=== PATIENT | female | born 1935 | race Caucasian/White ===

== ENCOUNTER → 2016-04-24 | Outpatient (CLI) | payer OTHER, BC ==
[~2016-04-24] MED LIST: AMLODIPINE BESY10 MG PO; AMLODIPINE BESYL5 MG PO; ASPIRIN325 MG PO; CALCIUM 500 MG1 EACH PO; DAILY VALUE1 EACH PO; DILTIAZEM 24HR240 MG PO; DITROPAN XL5 MG PO; DYAZIDE, MA1 CAPSULE PO; GLUCOMETER MC; LO-DOSE ASPIRIN81 M2 PO; MELATONIN3 MG PO; METFORMIN HCL500 MG PO; NOVOLOG PE100 UNITS/ SC; POTASSIUM CHLO10 MEQ PO; REVLIMID5 MG PO; TEST STRIPS MC; VITAMIN A; VITAMIN D31000 UNI2 PO; VITAMIN D31000 UNIT PO; VITAMIN E; VITAMIN E400 UNIT PO; ZOFRAN8 MG PO; [UNRECOGNIZED DRUG - OTHER] MC
[2016-04-24 10:33] LABS: HEMATOCRIT 23.2 % (36.0-46.0); MCH 29.8 PG (29.0-34.0); MCHC 33.2 G/DL (30.0-36.0); MCV 89.9 FL (83-99); MEAN PLAT.VOLUME 11.7 uM^3 (9.5-12.4); PLATELET COUNT 72 K/uL (156-360); RBC DIS.WIDTH-CV 16.5 % (11.8-14.6); RED BLOOD COUNT 2.58 M/uL (3.80-5.20); WHITE BLOOD COUNT 3.1 K/uL (4.1-10.2)
[2016-04-24 10:40] LABS: EOSINOPHIL (%) 3.2 % (0-5); EOSINOPHIL COUNT 0.1 K/uL (0-0.3); IMMATURE GRANULOCYTE (%) 1.9 % (0.0-0.7); IMMATURE GRANULOCYTE COUNT 0.1 K/uL; LYMPHOCYTE COUNT 0.8 K/uL (1.0-2.8); MONOCYTE (%) 10.1 % (3-12); MONOCYTE COUNT 0.3 K/uL (0-0.8); NEUTROPHIL (%) 57.6 % (45-76); NEUTROPHIL COUNT 1.8 K/uL (1.8-6.4)
[2016-04-24 10:46] LABS: INTER. NORMALIZED RATIO 1.1; PROTHROMBIN TIME 10.9 (9.2-11.2); PTT 23.1 (25-32)
[2016-04-24 12:40] LABS: ABS NEUTROPHIL COUNT 1.76; ANISOCYTOSIS 2+; EOSINOPHIL ABS CT 0.06; HYPOCHROMASIA 3+; MACROCYTES 1+; MICROCYTOSIS 1+; OVALOCYTES OCC; PLAT.SUFFICIENCY DECREASED; TEAR DROP CELLS OCC; USER ID TLW
[2016-04-26 16:42] LABS: Flow Clinical Information NOT PROVIDED (()); Flow Number of Markers 22 (()); Flow Spec Viability 98 % (()); Flow Specimen Type BONE MARROW (())
== END | disposition home or self-care (01) ==
LOC: OPR 09:40 → EDSTATUS 10:00 → OPR 10:00
PROVIDERS: Internal Medicine
PROC: 07DR3ZX Extraction of Iliac Bone Marrow, Percutaneous Approach, Diagnostic (ICD-10-PCS; principal; 2016-04-24)
DX: C90.00 Multiple myeloma not having achieved remission (principal); Z79.82 Long term (current) use of aspirin
CPT/HCPCS: 77012; 85025; 85610; 85730; 85999; 88184 90; 88185 90; 88189 90; 88237 90; 88264 90; 88271 90; 88271 91; 88275 90; 88275 91; 88280 90; 88291 90; J3010